=== PATIENT | female | born 1985 | race Hispanic/Latino ===

== ENCOUNTER 2018-02-19 16:03 | Day surgery (SDC) | payer OTHER ==
[2018-02-19 16:56] VITALS: BMI 31.5
--- NOTE | 2018-02-19 19:00 | ULT ---
ULTRASOUND BIOPHYSICAL PROFILE: 02/19/18 HISTORY: Gestational diabetes. FINDINGS: There is evidence of a single intrauterine gestation in cephalic presentation. The cardiac doppler de monstrates heart tones with a heart rate of 131 beats per minute. The placenta is located in the fundus without evidence of placenta previa. Subjectively, there appears to be decrease in amn iotic fluid volume, but an amniotic fluid index of 10 cm was calculated which is within normal limits . A score of 2 was obtained each for bone, breathing, movements and amniotic fluid vo lume. UMBILICAL ARTERY DOPPLER: At level of cord insertion: Peak systolic velocity of 48.1 cm/s. End diastolic velocity of 13.2 cm/s, systolic to diastolic ratio 3.64. Mid umbilical artery: Peak systolic velocity of 42.6 cm/s. End diastolic velocity of 14.5 cm/s, systo lic to diastolic ratio 2.94. Umbilical artery at level of placenta: Peak systolic velocity of 71.5 cm/s. End diastolic velocity of 25.8 cm/s, systolic to diastolic ratio 2.77. anatomical structures were not evaluated on this exam. MEASUREMENTS: Biparietal diameter 8.72 cm 35 weeks, 1 day Head circumference 31.61 cm 35 weeks, 4 days Abdominal circumference 31.04 cm 35 weeks Femur length 6.93 cm 35 weeks, 4 days The estimated gestational age by ultrasound is 35 weeks, 1 day with an JORDYN on 03/25/18. Gestational ag e by the last menstrual period is 35 weeks, 3 days. The estimated weight by ultrasound is 2622 grams (5 lb. 13 oz.). This represents 42 percentile for weight. IMPRESSION: 1. Single intrauterine gestation in cephalic presentation with heart tones documented. 2. Estimated gestational age by ultrasound is 35 weeks, 1 day with an JORDYN on 03/25/18. 3. Estimated weight is 2622 grams (5 lb, 13 oz). 4. Subjectively, there appears to be a decrease in amniotic fluid volume, but a normal amniotic fluid index of 10 cm is obtained. 5. Total biophysical profile score of 8 out of 8 is obtained. POS: [facility]
--- NOTE | 2018-02-23 13:20 | ULT ---
ULTRASOUND BIOPHYSICAL PROFILE: 02/19/18 HISTORY: Gestational diabetes. FINDINGS: There is evidence of a single intrauterine gestation in cephalic presentation. The cardiac doppler de monstrates heart tones with a heart rate of 131 beats per minute. The placenta is located in the fundus without evidence of placenta previa. Subjectively, there appears to be decrease in amn iotic fluid volume, but an amniotic fluid index of 10 cm was calculated which is within normal limits . A score of 2 was obtained each for bone, breathing, movements and amniotic fluid vo lume. UMBILICAL ARTERY DOPPLER: At level of cord insertion: Peak systolic velocity of 48.1 cm/s. End diastolic velocity of 13.2 cm/s, systolic to diastolic ratio 3.64. Mid umbilical artery: Peak systolic velocity of 42.6 cm/s. End diastolic velocity of 14.5 cm/s, systo lic to diastolic ratio 2.94. Umbilical artery at level of placenta: Peak systolic velocity of 71.5 cm/s. End diastolic velocity of 25.8 cm/s, systolic to diastolic ratio 2.77. anatomical structures were not evaluated on this exam. MEASUREMENTS: Biparietal diameter 8.72 cm 35 weeks, 1 day Head circumference 31.61 cm 35 weeks, 4 days Abdominal circumference 31.04 cm 35 weeks Femur length 6.93 cm 35 weeks, 4 days The estimated gestational age by ultrasound is 35 weeks, 1 day with an JORDYN on 03/25/18. Gestational ag e by the last menstrual period is 35 weeks, 3 days. The estimated weight by ultrasound is 2622 grams (5 lb. 13 oz.). This represents 42 percentile for weight. IMPRESSION: 1. Single intrauterine gestation in cephalic presentation with heart tones documented. 2. Estimated gestational age by ultrasound is 35 weeks, 1 day with an JORDYN on 03/25/18. 3.Estimated weight is 2622 grams (5 lb, 13 oz). 4. Subjectively, there appears to be a decrease in amniotic fluid volume, but a normal amniotic fluid index of 10 cm is obtained. Total biophysical profile score of 8 out of 8 is obtained.
== END 2018-02-19 17:31 | disposition home or self-care (01) ==
LOC: L&D/OP 16:03 → ULT 16:03 → EDSTATUS 16:13 → L&D/OP 17:31
PROVIDERS: ATTEND Family Medicine
DX: O24.419 Gestational diabetes mellitus in pregnancy, unspecified control (principal); Z3A.35 35 weeks gestation of pregnancy; Z79.899 Other long term (current) drug therapy
CPT/HCPCS: 59025; 76700; 76815; 76819; 99281

== ENCOUNTER 2020-01-13 09:08 | Outpatient (CLI) | payer OTHER ==
--- NOTE | 2020-01-13 13:39 | ULT ---
OB ULTRASOUND: 01/13/20 INDICATIONS: Assess anatomy. FINDINGS: There is a single viable intrauterine . Gestational age by ultrasound is 20 weeks, 0 days. BIOMETRY: BPD: 19 week, 1 day HC: 19 week, 3 day AC: 20 week, 5 day FL: 20 week, 2 day EFW: 346 grams, 20 week, 4 day Placenta: Posterior Presentation: Breech Amniotic fluid: Within normal range. BRITTNEE recorded at 11.9 cm. heart rate: 149 beats per minute. Cervical length: 5.6 cm ANATOMY: Intracranial contents, four chamber heart, stomach, kidney, cord insertion, bladder, spine, lips, nos e, extremities and three vessel cord were all imaged. No abnormality identified. IMPRESSION: 20 week, 0 day gestation by ultrasound measurement. No abnormality identified. POS: [facility]
== END 2020-01-13 09:09 | disposition home or self-care (01) ==
LOC: BICULT 09:08
PROVIDERS: ATTEND Family Medicine
DX: Z34.82 Encounter for supervision of other normal pregnancy, second trimester (principal); Z3A.20 20 weeks gestation of pregnancy
CPT/HCPCS: 76805

== ENCOUNTER 2020-05-05 09:59 | Outpatient (CLI) | payer OTHER ==
[2020-05-05 19:48] LABS: SARS-CoV-2 MS2 Positive; SARS-CoV-2 N Gene Negative; SARS-CoV-2 S Gene Negative; SARS-CoV-2 by NAA Not Detected (NotDetected); SARS-CoV-2 orf1ab Negative
== END 2020-05-05 10:00 | disposition home or self-care (01) ==
LOC: LABSCS 09:59
PROVIDERS: ATTEND Family Medicine
DX: Z20.828 Contact with and (suspected) exposure to other viral communicable diseases (principal)
CPT/HCPCS: 87635; U0003

== ENCOUNTER 2020-05-07 21:55 | Day surgery (SDC) | payer OTHER ==
[2020-05-07 22:34] VITALS: BP 110/65; TEMP 99.3; BMI 34.4
--- NOTE | 2020-05-07 23:09 | PDOC.LDHP ---
Labor and Delivery H&P Chief complaint: contractions HPI: 35 y/o at 38w0d, patient of Dr. Villatoro, presents with ctx q 1 hour intermittently, mucus discharge, and decreased FM. Patient denies VB, LOF, regular ctx, or other concerns. +FM, just periods without activity. Has felt movement while here. Was 2-3 cm in clinic last week. Scheduled for induction tomorrow night. ROS neg for HEENT, cv, pulm, gi, gu, neuro, psych, skin, musculoskeletal or constitutional sx other than mentioned above. OB History Details: 4 term SVDs Current complications: gestational diabetes (A2) Past Medical History: None Current medications: pre- vitamins, other (insulin) Previous surgical history: cholecystectomy Allergies/Adverse Reactions: Allergies Allergy/AdvReac Type Severity Reaction Status Date / Time No Known Allergies Allergy Verified 03/09/20 00:55 Social history: none - Physical Exam Vital signs reviewed and normal: yes General: NAD, resting Lungs: nonlabored breathing Abdomen: gravid Extremeties: no edema FHT: category 1 (135, mod variability, + accels, no decels) [place] contractions every: rare - Vaginal Exam cm dilated: 3 Effacement: 75% Station: -2 - Assessment 35 y/o at 38w0d with no e/o active labor. status reassuring with reactive NST. - Plan -: D/c home with precautions. Advised to keep induction appointment for tomorrow.
== END 2020-05-07 23:15 | disposition home or self-care (01) ==
LOC: L&D/OP 21:55
PROVIDERS: ATTEND Family Medicine
DX: O47.1 False labor at or after 37 completed weeks of gestation (principal); O24.414 Gestational diabetes mellitus in pregnancy, insulin controlled; Z3A.38 38 weeks gestation of pregnancy; Z79.4 Long term (current) use of insulin
CPT/HCPCS: 99283

== ENCOUNTER 2020-05-08 18:00 | Inpatient (IN) | payer OTHER, SELFPAY ==
[~2020-05-08 18:00] MED LIST: Bupivacaine 0.25% HCL 30 ML VIAL ONE
[2020-05-08] MEDS ORDERED: Misoprostol 200 MCG TAB PR PRN (21:47)
[2020-05-08] MEDS ORDERED: NS / Oxytocin 40 units/1000ml 1,000 ML IV PRN (21:47)
[2020-05-08] MEDS ORDERED: Butorphanol Tartrate 1 MG/ML VIAL SLOW IVP PRN (21:47)
[2020-05-08] MEDS ORDERED: Lidocaine 1% (PF) 30 ML VIAL SC PRN (21:47)
[2020-05-08] MEDS ORDERED: Ondansetron PF 4 MG/2 ML Vial IVP PRN (21:47)
[2020-05-08] MEDS ORDERED: Promethazine HCl 25 MG/ML VIAL IM PRN (21:47)
[2020-05-08] MEDS ORDERED: Methylergonovine 0.2 MG/ML VIAL IM PRN (21:47)
[2020-05-08] MEDS ORDERED: Carboprost 250 MCG/ML AMP IM PRN (21:47)
[2020-05-08] MEDS ORDERED: Diphenoxylate HCl/Atropine Tablet PO PRN (21:47)
[2020-05-08] MEDS ORDERED: hydrALAZINE 20 MG/ML VIAL SLOW IVP PRN (21:47)
[2020-05-08] MEDS ORDERED: HYDROcodone/Acetaminophen 5/325 mg Tablet PO PRN (21:47)
[2020-05-08] MEDS ORDERED: Ibuprofen 800 MG TAB PO PRN (21:47)
[2020-05-08] MEDS ORDERED: Penicillin G Potassium 5 MILL.UNITS in Sodium Chloride 0.9% 100 ML IVPB SCH (22:00)
[2020-05-08] MEDS ORDERED: NS w/ Oxytocin 10 units 500 ML IV SCH ×2 (22:00)
[2020-05-08 22:13] LABS: Hemoglobin 12.8 g/dL (12.0-16.0); Mean Corpuscular HGB CONC 34.3 g/dL (32.0-36.0); Mean Corpuscular Hemoglobin 29.5 pg (27.0-31.0); Mean Corpuscular Volume 86.1 fL (78.0-98.0); Mean Platelet Volume 7.7 fL (7.4-10.4); Platelet Count 236 thou/uL (130-400); RBC Distribution Width 12.6 % (11.5-14.5); Red Blood Cell (RBC) Count 4.33 mill/uL (4.20-5.40); White Blood Cell (WBC) Count 9.8 thou/uL (4.8-10.8)
[2020-05-08 22:48] VITALS: BMI 34.4
[2020-05-08 22:52] LABS: Syphilis Antibody Nonreactive (Nonreactive); Syphilis Antibody Index 0.03 S/CO (<1.00 Non-Reactive)
[2020-05-08 22:53] LABS: HBSAg Index 0.13 S/CO (0-0.99); Hep B Surf Ag Non-Reactive S/CO (NonReactive)
[2020-05-08] MEDS ORDERED: Insulin Glargine 4 UNITS in Pre-Filled Syringe 1 EACH SC SCH (23:30)
[2020-05-09] MEDS ORDERED: NS w/ Oxytocin 10 units 500 ML IV SCH ×2 (06:00)
[2020-05-09] MEDS: Lactated Ringer's 1,000 ML IV SCH ×2 (06:10→08:15)
[2020-05-09] MEDS: Penicillin G 2.5 MILL.units 2.5 MILL.UNITS in Premix Bag 1 BAG IVPB SCH ×4 (06:31→16:12)
[2020-05-09] MEDS ORDERED: Fentanyl 4 mcg/Bup 0.1% Cadd 100 ML ONE (08:48)
[2020-05-09] MEDS ORDERED: Adacel (T-DAP) 0.5 ML SYRINGE IM ONE (13:48)
[2020-05-09] MEDS ORDERED: Bisacodyl 10 MG SUPP PR PRN (13:48)
[2020-05-09] MEDS ORDERED: diphenhydrAMINE 25 MG CAP PO PRN (13:48)
[2020-05-09] MEDS ORDERED: Promethazine HCl 25 MG/ML VIAL IM PRN (13:48)
[2020-05-09] MEDS ORDERED: Milk Of Magnesia 30 ML UDCUP PO PRN (13:48)
[2020-05-09] MEDS ORDERED: HYDROcodone/Acetaminophen 5/325 mg Tablet PO PRN ×2 (13:48)
[2020-05-09] MEDS ORDERED: NS / Oxytocin 40 units/1000ml 1,000 ML IV SCH (13:48)
[2020-05-09] MEDS ORDERED: Lanolin Ointment 7 GM TUBE TOP PRN (13:48)
[2020-05-09] MEDS ORDERED: hydrALAZINE 20 MG/ML VIAL SLOW IVP PRN (13:48)
[2020-05-09] MEDS ORDERED: Ondansetron PF 4 MG/2 ML Vial IVP PRN (13:48)
[2020-05-09] MEDS ORDERED: Ibuprofen 800 MG TAB PO SCH (14:30)
[2020-05-09] MEDS: Ferrous Sulfate 325 MG TAB PO SCH (18:09)
[2020-05-09] MEDS: Docusate Calcium (SURFAK) 240 MG CAP PO SCH (21:28)
[2020-05-09] MEDS: Ibuprofen 800 MG TAB PO SCH (21:28)
[2020-05-10] MEDS: Ibuprofen 800 MG TAB PO SCH ×2 (05:40→13:57)
[2020-05-10 05:57] LABS: Hemoglobin 12.4 g/dL (12.0-16.0); Mean Corpuscular Hemoglobin 28.8 pg (27.0-31.0); Mean Corpuscular Volume 87.3 fL (78.0-98.0); Platelet Count 208 thou/uL (130-400); RBC Distribution Width 12.9 % (11.5-14.5); Red Blood Cell (RBC) Count 4.32 mill/uL (4.20-5.40); White Blood Cell (WBC) Count 10.6 thou/uL (4.8-10.8)
[2020-05-10] MEDS ORDERED: Prenatal Vitamin 1 TAB PO SCH (09:00)
[2020-05-10] MEDS: Docusate Calcium (SURFAK) 240 MG CAP PO SCH (09:29)
[2020-05-10] MEDS: Ferrous Sulfate 325 MG TAB PO SCH ×2 (09:30→16:16)
[2020-05-10 12:45] VITALS: TEMP 98.1
[2020-05-10 14:56] VITALS: BP 117/59
== END 2020-05-10 17:30 | disposition home or self-care (01) | DRG 807 ==
LOC: L&D 21:08 → 3SW 05-09 15:27
PROVIDERS: ADMIT Family Medicine; ATTEND Family Medicine
PROC: 10907ZC Drainage of Amniotic Fluid, Therapeutic from Products of Conception, Via Natural or Artificial Opening (ICD-10-PCS; 2020-05-08)
PROC: 3E033VJ Introduction of Other Hormone into Peripheral Vein, Percutaneous Approach (ICD-10-PCS; 2020-05-08)
PROC: 10E0XZZ Delivery of Products of Conception, External Approach (ICD-10-PCS; principal; 2020-05-09)
PROC: 3E0234Z Introduction of Serum, Toxoid and Vaccine into Muscle, Percutaneous Approach (ICD-10-PCS; 2020-05-10)
DX: O24.424 Gestational diabetes mellitus in childbirth, insulin controlled (principal); Z37.0 Single live birth; Z3A.38 38 weeks gestation of pregnancy; Z20.828 Contact with and (suspected) exposure to other viral communicable diseases; Z23 Encounter for immunization
CPT/HCPCS: 36415; 36416; 51702; 85027; 86780; 86850; 86900; 86901; 87340; 90715; 99283; J1815; J2590; S0020

== ENCOUNTER 2024-05-03 09:44 | Outpatient (CLI) | payer OTHER | END 2024-05-03 09:45 | disposition home or self-care (01) | LOC: ULT 09:44 | PROVIDERS: ATTEND Nurse Practitioner Women's Health | DX: N83.201 Unspecified ovarian cyst, right side (principal) | CPT/HCPCS: 76856 ==

== ENCOUNTER 2025-04-07 10:08 | Emergency (ER) | payer OTHER, SELFPAY ==
[2025-04-07] MEDS ORDERED: Ketorolac Tromethamine 30 MG (1 mL) VIAL ONE (11:24)
[2025-04-07 11:35] LABS: #Basophils 0.04 10x3/uL (0.0-0.2); #Eosinophils Less than 0.03 10x3/uL (0.0-0.7); #Monocytes 0.52 10x3/uL (0.11-0.59); #Neutrophils 4.92 10x3/uL (1.40-6.50); %Basophils 0.5 % (0.0-1.0); %Eosinophils 0.3 % (0.0-10.0); %Lymphocytes 30.4 % (21.0-51.0); %Monocytes 6.5 % (0.0-10.0); %Neutrophils 61.9 % (42.0-75.0); Hematocrit 39.1 % (36.0-47.0); Hemoglobin 12.8 g/dL (12.0-16.0); Mean Corpuscular Hemoglobin 27.7 pg (27.0-31.0); Mean Corpuscular Volume 84.6 fL (78.0-98.0); Platelet Count 284 10x3/uL (130-400); Red Blood Cell (RBC) Count 4.62 mill/uL (4.20-5.40); White Blood Cell (WBC) Count 7.95 10x3/uL (4.8-10.8)
[2025-04-07 11:42] LABS: Bacteria/HPF None Seen HPF (None Seen); CAUTI Indications for Culture Pelvic or flank pain; Glucose, Urine (Dipstick) Normal (Negative); Leukocyte Negative Leu/uL (Negative); Protein, Urine (Dipstick) Negative (Neg-Trace); RBC/HPF 0-3 HPF (0-3); Specific Gravity, Urine 1.020 (1.002-1.036); WBC/HPF 0-3 HPF (0-3)
[2025-04-07 11:43] LABS: Urine Culture Reflex No No
[2025-04-07 11:44] LABS: BHCG - Serum Negative (NEGATIVE); Pregs Control Background? CLEAR/WHITE (CLR/WHITE); Pregs Control Bar Appear? YES (CONTROL BAR)
[2025-04-07 11:54] LABS: ALT (SGPT) 33 U/L (Less than 34); AST (SGOT) 27 U/L (11-34); Albumin 4.1 g/dL (3.1-4.5); Alkaline Phosphatase 95 U/L (40-110); Anion Gap 10 mmol/L (10-20); BUN (Urea Nitrogen) 11 mg/dL (7.0-18.7); Bilirubin, Total 0.3 mg/dL (0.3-1.2); Calc. Creatinine Clearance 0 mL/min (70-130); Calcium 9.4 mg/dL (7.8-10.44); Carbon Dioxide 27 mmol/L (22-29); Chloride 105 mmol/L (98-107); Globulin 3.2 g/dL (2.4-3.5); Glucose 121 mg/dL (70-105); Lipase 42 U/L (8-78); Potassium 3.7 mmol/L (3.5-5.1); Sodium 138 mmol/L (136-145)
== END 2025-04-07 15:53 | disposition home or self-care (01) ==
LOC: ERS 10:08
DX: N13.4 Hydroureter (principal); K21.9 Gastro-esophageal reflux disease without esophagitis; E11.9 Type 2 diabetes mellitus without complications; Z87.891 Personal history of nicotine dependence
CPT/HCPCS: 74176; 80053; 81001; 83036; 83690; 84702; 84703; 85025; 87086; 96374; 96375; J1885; J2060

== ENCOUNTER 2025-06-13 08:07 | Outpatient (CLI) | payer OTHER | END 2025-06-13 08:08 | disposition home or self-care (01) | LOC: ULT 08:07 | PROVIDERS: ATTEND Nurse Practitioner Family | DX: R10.9 Unspecified abdominal pain (principal) | CPT/HCPCS: 76700; 76856 ==